=== PATIENT | male | born 1950 | race Two or more races ===

== ENCOUNTER 2018-07-14 08:34 | Outpatient (CLI) | payer OTHER | END 2018-07-14 08:42 | disposition home or self-care (01) | LOC: RAD 08:34 | DX: I11.9 Hypertensive heart disease without heart failure (principal); R06.02 Shortness of breath ==

== ENCOUNTER → 2018-07-14 | Outpatient (CLI) | payer OTHER | END | disposition home or self-care (01) | LOC: LAB 08:06 | DX: D50.8 Other iron deficiency anemias (principal); E03.8 Other specified hypothyroidism; E78.2 Mixed hyperlipidemia; I11.9 Hypertensive heart disease without heart failure; E56.8 Deficiency of other vitamins; N39.0 Urinary tract infection, site not specified; Z12.11 Encounter for screening for malignant neoplasm of colon; E55.9 Vitamin D deficiency, unspecified; E11.9 Type 2 diabetes mellitus without complications; R80.8 Other proteinuria; C18.8 Malignant neoplasm of overlapping sites of colon; K92.1 Melena ==

== ENCOUNTER → 2018-07-15 | Outpatient (CLI) | payer OTHER | END | disposition home or self-care (01) | LOC: LAB 07:49 | DX: D50.8 Other iron deficiency anemias (principal); E03.8 Other specified hypothyroidism; E78.2 Mixed hyperlipidemia; I11.9 Hypertensive heart disease without heart failure; E56.8 Deficiency of other vitamins; N39.0 Urinary tract infection, site not specified; Z12.11 Encounter for screening for malignant neoplasm of colon; R19.5 Other fecal abnormalities; E55.9 Vitamin D deficiency, unspecified; E11.9 Type 2 diabetes mellitus without complications; R80.8 Other proteinuria; C18.8 Malignant neoplasm of overlapping sites of colon; K92.1 Melena ==

== ENCOUNTER 2018-08-15 09:13 | Emergency (ER) | payer OTHER ==
[~2018-08-15] VITALS: Ht 180.3 cm; Wt 64.4 kg
[2018-08-15] MEDS ORDERED: NORVASC5 MG PO (09:47)
[2018-08-15] MEDS ORDERED: ZETIA10 MG PO (09:47)
[2018-08-15] MEDS ORDERED: IBERSANTAN PO (09:48)
[2018-08-15] MEDS ORDERED: CILOSTAZOL100 MG PO (09:48)
[2018-08-15] MEDS ORDERED: ATORVASTATIN CA20 MG PO (09:49)
[2018-08-15] MEDS ORDERED: CLOPIDOGREL BIS75 MG PO (09:49)
[2018-08-15] MEDS ORDERED: ASA81 MG PO (09:49)
== END 2018-08-15 10:31 | disposition home or self-care (01) ==
LOC: ER 09:13
DX: I95.89 Other hypotension (principal); R42 Dizziness and giddiness

== ENCOUNTER → 2018-08-24 07:25 | Outpatient (CLI) | payer OTHER ==
[~2018-08-24 07:25] MED LIST: ASA81 MG PO; ATORVASTATIN CA20 MG PO; CILOSTAZOL100 MG PO; CLOPIDOGREL BIS75 MG PO; IBERSANTAN PO; NORVASC5 MG PO; ZETIA10 MG PO
== END | disposition home or self-care (01) ==
LOC: LAB 07:25
DX: E11.9 Type 2 diabetes mellitus without complications (principal); I11.9 Hypertensive heart disease without heart failure; I25.10 Atherosclerotic heart disease of native coronary artery without angina pectoris; E55.9 Vitamin D deficiency, unspecified

== ENCOUNTER 2018-10-14 08:34 | Outpatient (CLI) | payer OTHER | END 2018-10-14 08:39 | disposition home or self-care (01) | LOC: LAB 08:34 | DX: R97.21 Rising PSA following treatment for malignant neoplasm of prostate (principal) ==

== ENCOUNTER 2019-01-02 08:19 | Outpatient (CLI) | payer OTHER | END 2019-01-02 17:00 | disposition home or self-care (01) | LOC: SONOGRAMA 08:19 | DX: N18.3 Chronic kidney disease, stage 3 (moderate) (principal) ==

== ENCOUNTER → 2019-01-09 | Outpatient (CLI) | payer OTHER | END | disposition home or self-care (01) | LOC: NUCLEAR 10:00 | DX: M15.0 Primary generalized (osteo)arthritis (principal); M81.0 Age-related osteoporosis without current pathological fracture ==

== ENCOUNTER 2020-01-09 17:32 | Outpatient (CLI) | payer OTHER | END 2020-01-09 18:27 | disposition home or self-care (01) | LOC: RAD 17:32 | DX: I10 Essential (primary) hypertension (principal) ==

== ENCOUNTER 2020-07-22 17:04 | Emergency (ER) | payer OTHER ==
[~2020-07-22] VITALS: Ht 180.3 cm; Wt 66.7 kg
[2020-07-22] MEDS ORDERED: AVAPRO75 MG (17:37)
[2020-07-22] MEDS ORDERED: COZAAR25 MG (17:37)
[2020-07-22] MEDS ORDERED: PLETAL (17:38)
== END 2020-07-23 09:38 | disposition designated cancer center or children's hospital (05) ==
LOC: ER 17:04
DX: S06.300A Unspecified focal traumatic brain injury without loss of consciousness, initial encounter (principal); S01.02XA Laceration with foreign body of scalp, initial encounter; W18.09XA Striking against other object with subsequent fall, initial encounter; Y93.89 Activity, other specified; Y92.098 Other place in other non-institutional residence as the place of occurrence of the external cause; Y99.8 Other external cause status; Z20.828 Contact with and (suspected) exposure to other viral communicable diseases

== ENCOUNTER 2020-07-31 08:35 | Emergency (ER) | payer OTHER ==
[~2020-07-31] VITALS: Ht 180.3 cm; Wt 66.2 kg
[~2020-07-31 08:35] MED LIST changes: +AVAPRO75 MG; +COZAAR25 MG; +PLETAL
== END 2020-07-31 10:50 | disposition home or self-care (01) ==
LOC: ER 08:35
DX: T81.89XA Other complications of procedures, not elsewhere classified, initial encounter (principal)

== ENCOUNTER 2020-08-05 15:52 | Emergency (ER) | payer OTHER ==
[~2020-08-05] VITALS: Ht 180.3 cm; Wt 69.4 kg
== END 2020-08-05 17:14 | disposition home or self-care (01) ==
LOC: ER 15:52 → EMR PED 15:53 → ER 17:14
DX: Z48.02 Encounter for removal of sutures (principal)

== ENCOUNTER → 2020-09-13 | Outpatient (CLI) | payer OTHER | END | disposition home or self-care (01) | LOC: MRI 14:20 | PROVIDERS: ATTEND Internal Medicine Cardiovascular Disease | DX: G93.89 Other specified disorders of brain (principal); S06.5X0A Traumatic subdural hemorrhage without loss of consciousness, initial encounter; Z86.73 Personal history of transient ischemic attack (TIA), and cerebral infarction without residual deficits | CPT/HCPCS: 70551 ==

== ENCOUNTER → 2020-12-18 | Outpatient (CLI) | payer OTHER | END | disposition home or self-care (01) | LOC: TOM 09:49 | DX: G93.89 Other specified disorders of brain (principal); G31.89 Other specified degenerative diseases of nervous system; S06.5X9A Traumatic subdural hemorrhage with loss of consciousness of unspecified duration, initial encounter ==

== ENCOUNTER → 2021-05-17 | Emergency (ER) | payer OTHER ==
[~2021-05-17] VITALS: Ht 167.6 cm; Wt 64.0 kg
[~2021-05-17] MED LIST changes: +CILOSTAZOL50 MG; +EZETIMIBE10 MG PO
== END | disposition home or self-care (01) ==
LOC: ER 19:42
DX: S61.220A Laceration with foreign body of right index finger without damage to nail, initial encounter (principal); W45.0XXA Nail entering through skin, initial encounter; Y93.89 Activity, other specified; Y92.018 Other place in single-family (private) house as the place of occurrence of the external cause; Y99.8 Other external cause status

== ENCOUNTER → 2021-05-24 | Emergency (ER) | payer OTHER ==
[~2021-05-24] VITALS: Ht 180.3 cm; Wt 64.0 kg
== END | disposition left against medical advice (07) ==
LOC: ER 07:22
DX: Z53.20 Procedure and treatment not carried out because of patient's decision for unspecified reasons (principal)

== ENCOUNTER 2021-05-27 07:56 | Emergency (ER) | payer OTHER ==
[~2021-05-27] VITALS: Ht 180.3 cm; Wt 64.0 kg
[~2021-05-27 07:56] MED LIST changes: -CILOSTAZOL50 MG
[2021-05-27] MEDS ORDERED: CILOSTAZOL50 MG (08:12)
== END 2021-05-27 09:03 | disposition home or self-care (01) ==
LOC: ER 07:56
DX: Z48.02 Encounter for removal of sutures (principal)

== ENCOUNTER 2021-09-09 09:40 | Outpatient (CLI) | payer OTHER ==
[~2021-09-09 09:40] MED LIST changes: +CILOSTAZOL50 MG
== END 2021-09-09 09:50 | disposition home or self-care (01) ==
LOC: MRI 09:40
PROVIDERS: ATTEND Psychiatry & Neurology Clinical Neurophysiology
DX: G30.1 Alzheimer's disease with late onset (principal); G93.89 Other specified disorders of brain
CPT/HCPCS: 70551

== ENCOUNTER 2022-04-21 12:51 | Emergency (ER) | payer OTHER ==
[~2022-04-21] VITALS: Ht 182.9 cm; Wt 65.8 kg
[2022-04-21] MEDS ORDERED: NORFLEX100MG PO (17:33)
== END 2022-04-21 18:03 | disposition home or self-care (01) ==
LOC: ER 12:51
DX: M54.2 Cervicalgia (principal); I10 Essential (primary) hypertension; E78.00 Pure hypercholesterolemia, unspecified

== ENCOUNTER 2022-12-25 12:31 | Outpatient (CLI) | payer OTHER ==
[~2022-12-25 12:31] MED LIST changes: +NORFLEX100MG PO
== END 2022-12-25 12:40 | disposition home or self-care (01) ==
LOC: RAD 12:31
PROVIDERS: ATTEND Physical Medicine & Rehabilitation
DX: M54.6 Pain in thoracic spine (principal)

== ENCOUNTER 2023-01-26 11:15 | Outpatient (CLI) | payer OTHER | END 2023-01-26 11:30 | disposition home or self-care (01) | LOC: RAD 11:15 | PROVIDERS: ATTEND Physical Medicine & Rehabilitation | DX: M79.642 Pain in left hand (principal); M20.012 Mallet finger of left finger(s) ==

== ENCOUNTER 2023-06-02 03:19 | Emergency (ER) | payer OTHER ==
[~2023-06-02] VITALS: Ht 180.3 cm; Wt 57.6 kg
[2023-06-02] MEDS ORDERED: NORVASC5 MG (03:33)
[2023-06-02] MEDS ORDERED: PLETAL (03:33)
[2023-06-02] MEDS ORDERED: COZAAR100 MG (03:33)
[2023-06-02] MEDS ORDERED: LIPITOR40 M1 (03:34)
[2023-06-02] MEDS ORDERED: ZETIA10 MG (03:34)
[2023-06-02] MEDS ORDERED: ARICEPT10 MG (03:34)
[2023-06-02] MEDS ORDERED: NAMENDA10 MG (03:34)
[2023-06-02] MEDS ORDERED: CENTRUM MEN'S1 EACH (03:35)
[2023-06-02] MEDS ORDERED: CLONAZEPAM0.5 MG (03:35)
[2023-06-02] MEDS ORDERED: NEURIN (03:35)
[2023-06-02] MEDS ORDERED: VITAMIN B-1100 MG (03:35)
[2023-06-02] MEDS ORDERED: VITAMIN C100 MG (03:36)
== END 2023-06-02 05:03 | disposition home or self-care (01) ==
LOC: ER 03:19
DX: S05.42XA Penetrating wound of orbit with or without foreign body, left eye, initial encounter (principal); W06.XXXA Fall from bed, initial encounter; Y93.89 Activity, other specified; Y92.013 Bedroom of single-family (private) house as the place of occurrence of the external cause

== ENCOUNTER → 2023-06-09 | Outpatient (CLI) | payer OTHER ==
[~2023-06-09] MED LIST changes: +ARICEPT10 MG; +CENTRUM MEN'S1 EACH; +CLONAZEPAM0.5 MG; +COZAAR100 MG; +LIPITOR40 M1; +NAMENDA10 MG; +NEURIN; +NORVASC5 MG; +VITAMIN B-1100 MG; +VITAMIN C100 MG; +ZETIA10 MG
== END | disposition home or self-care (01) ==
LOC: TOM 10:37
PROVIDERS: ATTEND Psychiatry & Neurology Clinical Neurophysiology
DX: S00.83XA Contusion of other part of head, initial encounter (principal)

== ENCOUNTER 2023-06-14 09:29 | Emergency (ER) | payer OTHER ==
[~2023-06-14] VITALS: Ht 185.4 cm; Wt 63.5 kg
== END 2023-06-14 10:44 | disposition home or self-care (01) ==
LOC: ER 09:29
DX: Z48.02 Encounter for removal of sutures (principal)

== ENCOUNTER 2024-08-20 20:34 | Emergency (ER) | payer OTHER ==
[~2024-08-20] VITALS: Ht 182.9 cm; Wt 57.6 kg
[2024-08-20 21:27] LABS: HEMATOCRIT 31.9 % (39.0-48.0); MEAN CELL VOLUME 91.7 fL (80.0-100.00); MEAN CORPUSCULAR HEMOGLOBIN 31.5 pg (27.00-32.0); MEAN CORPUSCULAR HGB CONC 34.4 g/dl (32.0-36.0); PLATELET COUNT 243 K/uL (150-450); RED BLOOD COUNT 3.48 M/uL (4.00-6.00); RED CELL DISTRIBUTION WIDTH 13.6 % (11.5-14.5)
[2024-08-20 22:00] LABS: PARTIAL THROMBOPLASTIN TIME 28.6 SECONDS (22.0-34.0); PROTHROMBIN TIME 10.9 SECONDS (9.0-11.5)
== END 2024-08-20 22:09 | disposition home or self-care (01) ==
LOC: ER 20:35
PROVIDERS: General Practice
DX: R60.0 Localized edema (principal)

== ENCOUNTER 2024-08-21 07:34 | Outpatient (CLI) | payer OTHER | END 2024-08-21 15:28 | disposition home or self-care (01) | LOC: SONOGRAMA 07:34 | PROVIDERS: ATTEND Internal Medicine Nephrology | DX: N18.2 Chronic kidney disease, stage 2 (mild) (principal); I10 Essential (primary) hypertension; R22.32 Localized swelling, mass and lump, left upper limb ==

== ENCOUNTER → 2024-08-23 10:43 | Outpatient (CLI) | payer OTHER | END | disposition home or self-care (01) | LOC: NUCLEAR 10:43 | PROVIDERS: ATTEND Physical Medicine & Rehabilitation | DX: I87.2 Venous insufficiency (chronic) (peripheral) (principal) ==

== ENCOUNTER 2024-08-29 10:34 | Outpatient (CLI) | payer OTHER | END 2024-08-29 10:35 | disposition home or self-care (01) | LOC: NUCLEAR 10:34 | PROVIDERS: ATTEND Physical Medicine & Rehabilitation | DX: I77.9 Disorder of arteries and arterioles, unspecified (principal) ==